=== PATIENT | female | born 1995 | race Caucasian/White ===

== ENCOUNTER 2017-09-10 11:14 | Emergency (ER) | payer SELFPAY ==
[2017-09-10] MEDS ORDERED: NORMAL SALINE 1000 ML 1,000 ML IV ONE (11:34)
--- NOTE | 2017-09-10 11:36 | ER Document Report ---
ED Medical Screen (RME) - General Chief Complaint: Chest Wall Pain Stated Complaint: CHEST PAIN Time Seen by Provider: 09/10/17 11:32 Notes: Patient is a 22-year-old female, past medical history open heart surgery when she was young (either ASD or VSD repair), presents with several days of increasing anterior and substernal chest pain, dry cough and some shortness of breath. No history of PE. PE: Tachycardia, regular rhythm. Lungs CTAB. I have greeted and performed a rapid initial assessment of this patient. A comprehensive ED assessment and evaluation of the patient, analysis of test results and completion of the medical decision making process will be conducted by additional ED providers. TRAVEL OUTSIDE OF THE [place] IN LAST 30 DAYS: No - Related Data Allergies/Adverse Reactions: No Known Allergies Allergy (Verified 09/10/17 11:15) Past Medical History - Past Medical History Cardiac Medical History: Denies: Hx Coronary Artery Disease, Hx Heart Attack, Hx Hypertension Pulmonary Medical History: Denies: Hx Asthma, Hx Bronchitis, Hx COPD, Hx Pneumonia Neurological Medical History: Reports: Hx Migraine. Denies: Hx Cerebrovascular Accident, Hx Seizures Musculoskeltal Medical History: Denies Hx Arthritis Past Surgical History: Reports: Hx Cardiac Surgery - surgery at age of 3., Hx Genitourinary Surgery - bladder surgery, Hx Kidney (Renal Surgery) - REFLUX CORRECTION. Denies: Hx Hysterectomy, Hx Pacemaker - Immunizations Immunizations up to date: Yes Hx Diphtheria, Pertussis, Tetanus Vaccination: Yes Physical Exam - Vital signs Vitals: Temp Pulse Resp BP Pulse Ox 98.0 F 116 H 20 136/96 H 100 09/10/17 11:27 09/10/17 11:09/10/17 11:09/10/17 11:09/10/17 11:27 Course - Vital Signs Vital signs: Temp Pulse Resp BP Pulse Ox 98.0 F 116 H 20 136/96 H 100 09/10/17 11:27 09/10/17 11:09/10/17 11:27 09/10/17 11:27 09/10/17 11:27 Doctor's Discharge - Discharge Referrals: NANCY PRUITT DO [Primary Care Provider] - Follow up as needed
--- NOTE | 2017-09-10 11:53 | RADIOLOGY REPORT (SQ) ---
EXAM DESCRIPTION: CHEST 2 VIEWS COMPLETED DATE/TIME: 09/10/2017 11:40 am REASON FOR STUDY: chest pain, SOB COMPARISON: Chest films 11/09/2011, 02/21/2013 EXAM PARAMETERS: NUMBER OF VIEWS: two views TECHNIQUE: Digital Frontal and Lateral radiographic views of the chest acquired. RADIATION DOSE: NA LIMITATIONS: none FINDINGS: LUNGS AND PLEURA: No opacities, masses or pneumothorax. No pleural effusion. MEDIASTINUM AND HILAR STRUCTURES: No masses or contour abnormalities. HEART AND VASCULAR STRUCTURES: Heart normal size. No evidence for failure. BONES: No acute findings. Tiny sternotomy wires from remote prior pediatric cardiac surgery. HARDWARE: None in the chest. OTHER: No other significant finding. IMPRESSION: NO ACUTE RADIOGRAPHIC FINDING IN THE CHEST. TECHNICAL DOCUMENTATION: JOB ID: [id number] [employer]- All Rights Reserved Reading location - IP/workstation name: [email or web address]
[2017-09-10 12:22] LABS: ABSOLUTE EOSINOPHILS # (AUTO) 0.8 10^3/uL (0.0-0.6); ABSOLUTE LYMPHOCYTES (AUTO) 1.2 10^3/uL (0.5-4.7); ABSOLUTE NEUT (AUTO) 5.8 10^3/uL (1.7-8.2); BASOPHILS % (AUTO) 0.2 % (0-2); EOSINOPHILS % (AUTO) 8.6 % (0-6); HEMATOCRIT 45.4 % (36.0-47.0); HEMOGLOBIN 15.4 g/dL (12.0-15.5); LYMPHOCYTES % (AUTO) 14.1 % (13-45); MEAN CORPUSCULAR HEMOGLOBIN 30.4 pg (27.0-33.4); MEAN CORPUSCULAR HGB CONC 34.1 g/dL (32.0-36.0); MEAN CORPUSCULAR VOLUME 89 fl (80-97); MONOCYTES % (AUTO) 11.2 % (3-13); PLATELET COUNT 238 10^3/uL (150-450); RED BLOOD COUNT 5.08 10^6/uL (3.72-5.28); RED CELL DISTRIBUTION WIDTH 13.2 % (11.5-14.0); SEGMENTED NEUTROPHILS % (AUTO) 65.9 % (42-78); TOTAL CELLS COUNTED % (AUTO) 100 %; WHITE BLOOD COUNT 8.8 10^3/uL (4.0-10.5)
[2017-09-10] MEDS ORDERED: ASPIRIN 81 MG TABLET, CHEWABLE PO ONE (12:23)
--- NOTE | 2017-09-10 12:25 | ER Document Report ---
ED Cardiac - General Chief Complaint: Chest Wall Pain Stated Complaint: CHEST PAIN Time Seen by Provider: 09/10/17 11:32 Mode of Arrival: Ambulatory Information source: Patient, Parent TRAVEL OUTSIDE OF THE [place] IN LAST 30 DAYS: No - HPI Patient complains to provider of: Chest pain Use of: denies: Alcohol, Amphetamines, Bath salts, Caffeine, Cocaine, Decongestants Was the onset of pain: Gradual Is the pain a: New problem Chest pain location: Other - MID-STERNAL Quality of pain: Sharp Chest pain radiation location: None Severity now: Mild Severity at worst: Moderate Chest pain precipitating factors: DEEP BREATH Cardiac risk factors: None Positive cardiac history: Yes Associated symptoms: None. denies: Diaphoresis, Lightheaded, Nausea/vomiting, Shortness of breath Exacerbated by: Activity, Coughing, Deep breaths Relieved by: Nothing Similar symptoms previously: No Recently seen / treated by doctor: No - Related Data Allergies/Adverse Reactions: No Known Allergies Allergy (Verified 09/10/17 11:15) Past Medical History - General Information source: Patient, Parent - Social History Smoking Status: Never Smoker Cigarette use (# per day): No Chew tobacco use (# tins/day): No Frequency of alcohol use: None Drug Abuse: None Lives with: Family Family History: Reviewed & Not Pertinent Patient has suicidal ideation: No Patient has homicidal ideation: No - Past Medical History Cardiac Medical History: Reports: Hx Heart Murmur, Other - VSD, 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 Denies: Hx Cerebrovascular Accident, Hx Seizures Endocrine Medical History: Reports: None Renal/ Medical History: Reports: None. Denies: Hx Peritoneal Dialysis Malignancy Medical History: Reports: None GI Medical History: Reports: None Musculoskeltal Medical History: Denies Hx Arthritis, Reports Other - SCOLIOSIS Psychiatric Medical History: Reports: None Past Surgical History: Reports: Hx Cardiac Surgery - surgery at age of 3, VSD REPAIR., Hx Genitourinary Surgery - bladder surgery, Hx Kidney (Renal Surgery) - REFLUX CORRECTION. Denies: Hx Hysterectomy, Hx Pacemaker - Immunizations Immunizations up to date: Yes Hx Diphtheria, Pertussis, Tetanus Vaccination: Yes Review of Systems - Review of Systems Constitutional: No symptoms reported. denies: Diaphoresis, Fever, Weakness EENT: No symptoms reported Cardiovascular: See HPI Respiratory: No symptoms reported. denies: Short of breath Gastrointestinal: No symptoms reported Genitourinary: No symptoms reported Female Genitourinary: No symptoms reported Musculoskeletal: No symptoms reported Skin: No symptoms reported Neurological/Psychological: No symptoms reported Physical Exam - Vital signs Vitals: Temp Pulse Resp BP Pulse Ox 98.0 F 116 H 20 136/96 H 100 09/10/17 11:27 09/10/17 11:27 09/10/17 11:27 09/10/17 11:27 09/10/17 11:27 Interpretation: Hypertensive, Tachycardic. No: Hypoxic, Tachypneic, Febrile - General General appearance: Appears well, Alert In distress: None - HEENT Head: Normocephalic Eyes: Normal Conjunctiva: Normal Ears: Normal Nasal: Normal Mouth/Lips: Normal Mucous membranes: Dry - MILDLY Pharynx: Normal - Respiratory Respiratory status: No respiratory distress Chest status: Tender - SLIGHT, OVER STERNUM Breath sounds: Normal - Cardiovascular Rhythm: Regular Heart sounds: Normal auscultation Murmur: Yes - FLOW MURMUR @ [facility] Systolic murmur grade 1-6: 1 Friction rub: No Margi's crunch: No - Abdominal Inspection: Normal Distension: No distension Bowel sounds: Normal - Back Back: Normal - Extremities General upper extremity: Normal inspection General lower extremity: Normal inspection - Neurological Neuro grossly intact: Yes Cognition: Normal Orientation: AAOx4 - Psychological Associated symptoms: Normal affect, Normal mood - Skin Skin Temperature: Warm Skin Moisture: Dry Skin Color: Normal Skin Turgor: Elastic Course - Re-evaluation Re-evalutation: 09/10/17 13:35 Patient is subjectively unchanged. Tachycardia has now resolved. Results of workup discussed with patient and parent. Will advise symptomatic treatment, follow-up as needed. 09/10/17 13:36 - Vital Signs Vital signs: Temp Pulse Resp BP Pulse Ox 98.0 F 116 H 13 136/96 H 99 09/10/17 11:27 09/10/17 11:27 09/10/17 12:07 09/10/17 11:27 07/07/18 12:07 - Laboratory Result Diagrams: 09/10/17 11:53 09/10/17 11:53 Laboratory results interpreted by me: 09/10/17 11:53 Eosinophils % 8.6 H Absolute Eosinophils 0.8 H - Diagnostic Test Radiology reviewed: Image reviewed, Reports reviewed - EKG Interpretation by Me EKG shows normal: Sinus rhythm, [place], Intervals, ST-T Waves. abnormal: QRS Complexes Rate: Tachycardia [place]/QRS: RBBB - INCOMPLETE, OLD Discharge - Discharge Clinical Impression: Chest wall pain Condition: Stable Disposition: HOME, SELF-CARE Instructions: Chest Wall Pain ([facility]), Ibuprofen (General) ([facility]) Additional Instructions: REST, AVOID PAINFUL ACTIVITY. TAKE IBUPROFEN OR NAPROXEN IF NEEDED FOR PAIN RELIEF. FOLLOW UP WITH YOUR PRIMARY CARE PROVIDER OR RETURN TO E.R. IF PROBLEMS. Referrals: NANCY PRUITT, [Primary Care Provider] - Follow up as needed
[2017-09-10 12:49] LABS: ALANINE AMINOTRANSFERASE 21 U/L (9-52); ALKALINE PHOSPHATASE 72 U/L (38-126); ANION GAP 11 (5-19); ASPARTATE AMINO TRANSFERASE 21 U/L (14-36); BILIRUBIN,DIRECT 0.3 mg/dL (0.0-0.4); BILIRUBIN,TOTAL 0.7 mg/dL (0.2-1.3); BLOOD UREA NITROGEN 9 mg/dL (7-20); CALCIUM 10.2 mg/dL (8.4-10.2); CARBON DIOXIDE 27 mmol/L (22-30); CHLORIDE 104 mmol/L (98-107); CREATINE KINASE 69 U/L (30-135); GLUCOSE 88 mg/dL (75-110); POTASSIUM 4.4 mmol/L (3.6-5.0); SODIUM 142.1 mmol/L (137-145); TOTAL PROTEIN 8.1 g/dL (6.3-8.2)
[2017-09-10 13:42] VITALS: BP 116/79
--- NOTE | 2017-09-10 21:06 | EKG REPORT ---
SEVERITY:- ABNORMAL ECG - SINUS TACHYCARDIA INCOMPLETE RIGHT BUNDLE BRANCH BLOCK : Confirmed by: Corby Oseguera MD 10-Sep-2017 21:05:57
== END 2017-09-10 13:50 | disposition home or self-care (01) ==
LOC: ER 11:14
DX: R07.89 Other chest pain (principal)
CPT/HCPCS: 93005; 99285; 96360; 36415; 82550; 84703; 85025; 80053; 84484; 85379; 71046; 93010; J7030